=== PATIENT | female | born 1995 | race Caucasian/White ===

== ENCOUNTER 2020-05-17 08:36 | Emergency (ER) | payer OTHER ==
[2020-05-17 09:30] LABS: BASOPHIL 0.8 % (0-2); EOSINOPHIL 3.5 % (0-5); HCT 38.8 % (37.0-47.0); HGB 13.1 g/dl (12.5-16.0); LYMPHOCYTE 23.5 % (15-48); MCH 30.2 pg (25.0-31.0); MCHC 33.8 g/dL (32.0-36.0); MCV 89.4 fL (78.0-100.0); MONOCYTE 6.1 % (0-12); MPV 10.4 fL (6.0-9.5); NEUTROPHIL 65.4 % (41-80); NRBC 0; PLT 187 K/uL (150-400); RBC 4.34 M/uL (4.20-5.40); RDW 11.9 % (11.5-14.0); WBC 7.5 K/uL (4.0-10.5)
[2020-05-17 09:32] LABS: BILIRUBIN NEGATIVE (NEGATIVE); BLOOD NEGATIVE Ery/uL (NEGATIVE); CLARITY CLEAR (CLEAR); COLOR YELLOW (YELLOW); GLUCOSE (U) NORMAL (NORMAL); LEUKOCYTES NEGATIVE Leu/uL (NEGATIVE); NITRITE NEGATIVE (NEGATIVE); PROTEIN NEGATIVE (NEGATIVE); UROBILINOGEN 0.2 mg/dL (0.2-1.0)
[2020-05-17 10:26] LABS: ALBUMIN 3.8 g/dL (3.4-5.0); BILIRUBIN - TOTAL 0.4 mg/dL (0.2-1.0); BUN/CREAT RATIO (CALC) 20.6 RATIO; CREATININE 0.63 mg/dL (0.51-0.95); GLOBULIN (CALCULATION) 3.6 g/dL; POTASSIUM 4.7 mmol/L (3.5-5.1); TOTAL PROTEIN 7.4 g/dL (6.4-8.2)
[2020-05-17] MEDS ORDERED: PEPCID AC20 MG PO (11:09)
== END 2020-05-17 11:40 | disposition home or self-care (01) ==
LOC: FER 08:36
PROVIDERS: Emergency Medicine
DX: K21.9 Gastro-esophageal reflux disease without esophagitis (principal); R10.12 Left upper quadrant pain; R10.13 Epigastric pain; E66.9 Obesity, unspecified; I10 Essential (primary) hypertension; E07.9 Disorder of thyroid, unspecified; Z88.1 Allergy status to other antibiotic agents; Z79.899 Other long term (current) drug therapy
CPT/HCPCS: 36415; 74022; 80053; 81003; 83690; 85025; 87339